=== PATIENT | male | born 1980 | race Caucasian/White ===

== ENCOUNTER 2022-04-26 10:37 | Emergency (ER) | payer SELFPAY ==
[2022-04-26] MEDS ORDERED: Dexamethasone 10 MG/ML SDV IM STA (10:49)
[2022-04-26] MEDS ORDERED: Acetaminophen/oxyCODONE 325-5 MG Tab PO ONE (10:49)
[2022-04-28] MEDS ORDERED: Acetaminophen/oxyCODONE 325-5 MG Tab PO ONE (14:03)
== END 2022-04-26 11:34 | disposition home or self-care (01) ==
LOC: MW.ED 10:37
DX: M25.562 Pain in left knee (principal)
CPT/HCPCS: 73562-26-LT; 73562-LT; 96372; 99283-25; A9270-GY; J1100